=== PATIENT | female | born 1995 | race Caucasian/White ===

== ENCOUNTER 2018-12-09 10:27 | Emergency (ER) | payer OTHER ==
[2018-12-09] MEDS ORDERED: IBUPROFEN 600 MG TAB PO ONE (10:46)
--- NOTE | 2018-12-09 10:55 | EDPHY ---
H & P Time Seen by Provider: 12/09/18 10:42 HPI/ROS: HPI Fall off ladder. Hit head. Left shoulder pain. 23-year-old female by private vehicle. 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 She was up on a step ladder. She reports that she slipped and fell off the 5th or 6th step of the step ladder. She reports that she landed on her left shoulder and hit the back of her head. She denies loss of consciousness. She has not been confused. No nausea or vomiting. She does complain of a frontal aching headache. She complains of pain to her left shoulder. She denies other extremity pain. She is not on anticoagulant or antiplatelet medication. ROS: Constitutional: No fever, no chills. No weakness. Eyes: No discharge. No changes in vision. Respiratory: No cough. No shortness of breath. Cardiac: No chest pain, no palpitations. Gastrointestinal: No abdominal pain, no vomiting, no diarrhea. Musculoskeletal: No back pain. No neck pain. As above. Skin: No rashes. No lacerations. Neurological: No headache. No focal weakness or altered sensation. Past medical history: No significant past medical history. Social history: No alcohol. She does not smoke. She is here by herself. Physical Exam: General Appearance: Alert, no distress. This patient is responding to questions appropriately and in full sentences. This patient appears well- hydrated and well-nourished. Head: Normocephalic atraumatic except for a possible and subtle right posterior parietal scalp hematoma, no bony step-off or crepitus noted on palpation of this area. No abrasion or laceration noted. Face: Facial bones are stable on palpation. Eyes: Pupils equal and round and reactive to light, no pallor or injection. No lid erythema or edema. ENT, Mouth: Mucous membranes moist. Dentition is intact. No malocclusion of the jaw. No tongue lacerations or abrasions. Pharynx is clear. The bilateral nasal canals are clear. No septal hematoma. Respiratory: There are no retractions, lungs are clear to auscultation with good air movement bilaterally. Chest wall is stable to AP and lateral palpation. Cardiovascular: Regular rate and rhythm. No murmur. Gastrointestinal: Abdomen is soft and nontender, no masses, bowel sounds normal. Neurological: Motor sensory function is intact. Cranial nerves are normal. Cerebellar function intact. Skin: Warm and dry, no rashes. No lacerations, she has a subtle superficial abrasion just below the mid left scapula. No bony step-off or deformity noted on palpation of this area. Musculoskeletal: Neck is supple and nontender. The trachea is midline. No midline cervical, thoracic, lumbar or sacral tenderness on palpation. No flank tenderness on palpation. Left shoulder exam: She has some vague tenderness on palpation involving the lateral and anterior aspect of the left shoulder. No gross deformity or asymmetry when compared to her right shoulder. The left shoulder ranges in all planes of motion. She does have some discomfort with external and internal rotation. The proximal humerus of the left upper extremity is nontender on palpation. The axillary nerve distribution is intact. The left upper extremity is neurovascularly intact. Extremities are otherwise symmetrical, full range of motion. All joints in the bilateral upper and bilateral lower extremities range without pain or impingement except noted. No tenderness on palpation of the long bones in the bilateral upper and bilateral lower extremities except noted. Psychiatric: No agitation. No depression. Database: EKG: Imaging: Left shoulder x-ray series: Negative for fracture, subluxation, dislocation. Interpreted by me. Procedures: Emergency department course: Triage vital signs reviewed and are unremarkable. Patient given 600 mg of ibuprofen for left shoulder pain and headache. She will be sent for left shoulder series x-ray. I feel that she does not require CT imaging of her head at this time. 11:10 a.m., the patient was re-evaluated, sitting upright on gurney. She appears comfortable. Repeat neurologic Assessment is nonfocal. I discussed results of her left shoulder x-ray series. She feels comfortable going home at this time and I feel she is safe for discharge. Head injury precautions were thoroughly reviewed with her. Return to emergency department precautions discussed. Follow-up was discussed. All of her questions were answered. She was discharged from the emergency department in good condition. Differential Diagnosis: The differential diagnosis on this patient includes but is not limited to left shoulder sprain. Shoulder dislocation, fracture, spinal injury, epidural hematoma, subdural hematoma, traumatic subarachnoid hemorrhage, skull fracture, other significant traumatic injury unlikely. This represents a partial list of diagnoses considered. These considerations are based on history, physical exam , past history, reassessment and diagnostic testing. Smoking Status: Former smoker Constitutional: Initial Vital Signs Temperature (C) 37.1 C 12/09/18 10:41 Heart Rate 77 12/09/18 10:41 Respiratory Rate 18 12/09/18 10:41 Blood Pressure 144/83 H 12/09/18 10:41 O2 Sat (%) 97 12/09/18 10:41 O2 Delivery Mode Room Air Allergies/Adverse Reactions: No Known Allergies Allergy (Unverified 12/09/18 10:44) Home Medications: Medication Instructions Recorded Cymbalta 12/09/18 Wellbutrin Sr 12/09/18 Medical Decision Making - Data Points Medications Given: Discontinued Medications Ibuprofen (Motrin) 600 mg PO EDNOW ONE Stop: 12/09/18 10:47 Last Admin: 12/09/18 10:51 Dose: 600 mg Departure - Departure Disposition: Home, Routine, Self-Care Clinical Impression: Fall from ladder, Sprain of left shoulder Condition: Good Instructions: Head Injury (ED), Shoulder Sprain (ED) Additional Instructions: Read and follow provided instructions. Follow-up with your primary care physician or workman's Comp physician in 1-2 days for re-evaluation as discussed. Ibuprofen dosin mg every 6 hours with meals for the next 3 days only. Take only as needed for pain. Return to the emergency department for worsening pain, worsening headache, confusion, nausea and vomiting, loss of sensation or weakness in your extremities or other serious concerns. Referrals: NONE *PRIMARY CARE P,. [Primary Care Provider] - As per Instructions
[2018-12-09 11:19] VITALS: BP 137/84
== END 2018-12-09 11:19 | disposition home or self-care (01) ==
LOC: CED 10:27
DX: S43.402A Unspecified sprain of left shoulder joint, initial encounter (principal); W11.XXXA Fall on and from ladder, initial encounter; Y99.0 Civilian activity done for income or pay
CPT/HCPCS: 73030-PO; 99283-ER